=== PATIENT | female | born 1980 | race Caucasian/White ===

== ENCOUNTER 2017-03-08 22:26 | Emergency (ER) | payer MEDICAID ==
[2017-03-08 23:20] LABS: BASOPHIL % 0.5 % (0-2); PLATELET COUNT 253 x10^3mcL (130-400)
[2017-03-08 23:22] LABS: RED CELL DISTRIBUTION WIDTH 16.3 % (11.5-14.5)
[2017-03-08 23:35] LABS: CALCIUM 8.8 mg/dL (8.5-10.1); CARBON DIOXIDE 27.3 mmol/L (21-32); CHLORIDE SERUM 105 mmol/L (98-107); CREATININE SERUM 0.7 mg/dL (0.6-1.0); GFR1 > 60 mL/min; GLUCOSE SERUM 112 mg/dL (74-106); POTASSIUM SERUM 4.2 mmol/L (3.5-5.1); SODIUM SERUM 141 mmol/L (136-145)
[2017-03-08 23:39] LABS: ALBUMIN 3.7 g/dL (3.4-5.0); ALKALINE PHOSPHATASE 100 U/L (46-116); ALT/SGPT 36 U/L (14-59); AST/SGOT 74 U/L (15-37); BILIRUBIN TOTAL 0.3 mg/dL (0.20-1.00); LIPASE 136 IU/L (73-393); TOTAL PROTEIN, SERUM 7.4 g/dL (6.4-8.2)
[2017-03-09 00:30] VITALS: BP 122/71
== END 2017-03-09 00:30 | disposition home or self-care (01) ==
LOC: ED 22:26
PROVIDERS: Emergency Medicine
DX: K80.20 Calculus of gallbladder without cholecystitis without obstruction (principal); R11.2 Nausea with vomiting, unspecified; K76.0 Fatty (change of) liver, not elsewhere classified
CPT/HCPCS: J1885; J2270; J7030; Q0092

== ENCOUNTER 2019-04-11 02:53 | Emergency (ER) | payer MEDICAID ==
[~2019-04-11] VITALS: Ht 154.9 cm; Wt 72.1 kg
[2019-04-11 02:57] VITALS: Ht 154.9 cm; Wt 72.1 kg
[2019-04-11 04:35] VITALS: BP 122/65
== END 2019-04-11 04:35 | disposition home or self-care (01) ==
LOC: ED 02:53
DX: K21.9 Gastro-esophageal reflux disease without esophagitis (principal); R12 Heartburn; Z88.0 Allergy status to penicillin

== ENCOUNTER 2020-05-22 01:20 | Emergency (ER) | payer MEDICAID ==
[~2020-05-22] VITALS: Ht 152.4 cm; Wt 66.2 kg
[2020-05-22 01:32] VITALS: Ht 152.4 cm; Wt 66.2 kg
[2020-05-22 03:24] VITALS: BP 118/67
== END 2020-05-22 03:24 | disposition home or self-care (01) ==
LOC: ED 01:20
DX: M54.2 Cervicalgia (principal); G89.29 Other chronic pain; Z88.0 Allergy status to penicillin
CPT/HCPCS: J1885